=== PATIENT | female | born 1945 | race Caucasian/White ===

== ENCOUNTER 2019-08-10 08:57 | Inpatient (IN) | payer MEDICARE, MEDICAID ==
[2019-08-05 16:06] LABS: BASOPHILS % (AUTO) 0.7 % (0-1); EOSINOPHILS # (AUTO) 0.1 X10'3 (0-0.9); EOSINOPHILS % (AUTO) 2.5 % (0-6); LYMPHOCYTES # (AUTO) 1.9 X10'3 (1.1-4.8); LYMPHOCYTES % (AUTO) 39.7 % (21-51); MEAN CORPUSCULAR HEMOGLOBIN 29.2 PG (27.0-31.0); MEAN CORPUSCULAR HGB CONC 32.9 g/dL (33.0-36.5); MEAN CORPUSCULAR VOLUME 88.8 FL (78-98); MEAN PLATELET VOLUME 8.2 FL (7.4-10.4); MONOCYTES # (AUTO) 0.4 X10'3 (0-0.9); MONOCYTES % (AUTO) 8.9 % (2-12); NEUTROPHILS # (AUTO) 2.3 X10'3 (1.8-7.7); NEUTROPHILS % (AUTO) 48.2 % (42-75); PRE OP HEMATOCRIT 32.2 % (35.0-45.0); PRE OP PLATELET COUNT 256 X10'3 (140-440); RED BLOOD COUNT 3.63 X10'6 (4.20-5.60); RED CELL DISTRIBUTION WIDTH 14.5 % (11.5-14.5)
[2019-08-05 16:08] LABS: PRE OP HEMOGLOBIN 10.6 g/dL (12.0-16.0)
[2019-08-05 16:36] LABS: ALBUMIN 3.6 G/DL (3.4-5.0); ALBUMIN/GLOBULIN RATIO 1.1 (1.1-1.5); ALKALINE PHOSPHATASE 70 IU/L (46-116); BLOOD UREA NITROGEN 21 MG/DL (7-18); BUN/CREATININE RATIO 16.2 (6.6-38.0); CALCIUM 9.2 MG/DL (8.5-10.1); CHLORIDE 105 MMOL/L (99-107); PRE OP ALT 20 U/L (30-65); PRE OP ANION GAP 6 (8-16); PRE OP AST 19 U/L (10-37); PRE OP BILIRUB, TOTAL 0.2 MG/DL (0.0-1.0); PRE OP GLUCOSE 71 MG/DL (70-104); PRE OP POTASSIUM 3.8 MMOL/L (3.4-5.1); PRE OP SODIUM 143 MMOL/L (135-145); TOTAL CARBON DIOXIDE 32.4 MMOL/L (24-32); eGFR 40 ML/MIN
[2019-08-10] VITALS (16 sets, daily range): BP systolic 104–137; BP diastolic 51–82
[~2019-08-10] VITALS: Ht 162.6 cm; Wt 87.2 kg
[~2019-08-10 08:57] MED LIST: ESCI20TA38 PO; LEVO112T5 PO; MIDAZolam 5mg/5ml vial ONE; NITR0.4T48 SL; OXYB5TAB16 PO; ROSU20TA31 PO; albumin (Human) 5% 250ml 250 ML IV ONE; etomidate 2mg/ml inj. ONE; fentaNYL/PF 50MCG/1 ML 2ML syringe ONE; ondansetron/PF 4mg/2ml inj ONE; rocuronium 10mg/ml inj IV ONE
[2019-08-10] MEDS ORDERED: vancomycin inj 1,500 MG in normal saline 300ml IV soln IV ONE (10:00)
[2019-08-10] MEDS ORDERED: cefazolin/dext.iso 2gm/100ml 100 ML IV ONE (10:00)
[2019-08-10] MEDS ORDERED: famotidine 20mg tablet PO ONE (10:00)
[2019-08-10] MEDS ORDERED: ringers solution, lacted 1,000 ML IV SCH ×2 (10:00→11:32)
[2019-08-10] MEDS ORDERED: tranexamic acid inj. 860 MG in normal saline 100ml IV soln 100 ML IV ONE ×4 (10:00)
[2019-08-10] MEDS ORDERED: ROPIVAcaine 0.5% (5mg/ml) 30ml vial ONE (11:05)
[2019-08-10] MEDS ORDERED: ketorolac trometh. 30mg/ml inj. ONE (11:05)
[2019-08-10] MEDS ORDERED: ondansetron/PF 4mg/2ml inj IV PRN ×2 (11:35→15:20)
[2019-08-10] MEDS ORDERED: HYDROmorphone inj. 0.5 MG/0.5 ML DISP.SYRIN IV PRN ×2 (11:35→15:20)
[2019-08-10] MEDS ORDERED: BUPIVAcaine/PF 2.5mg/ml (0.25%) 10ml vial ONE (12:29)
[2019-08-10] MEDS ORDERED: sevoflurane 250ml liquid IH ONE (12:30)
[2019-08-10] MEDS ORDERED: fentaNYL/PF 50MCG/1 ML 2ML syringe ONE ×2 (12:31→14:44)
[2019-08-10] MEDS ORDERED: MIDAZolam 5mg/5ml vial ONE (12:32)
[2019-08-10] MEDS ORDERED: neostigmine methylsulfate 1 MG/ML 10ml vial ONE (14:15)
[2019-08-10] MEDS ORDERED: rocuronium 10mg/ml inj IV ONE (14:15)
[2019-08-10] MEDS ORDERED: propofol inj 20 ML IV ONE (14:15)
[2019-08-10] MEDS ORDERED: dexamethasone sod phosphate 4mg/ml inj. ONE (14:15)
[2019-08-10] MEDS ORDERED: ondansetron/PF 4mg/2ml inj ONE (14:15)
[2019-08-10] MEDS ORDERED: phenylephrine 10mg/ml inj. ONE (14:15)
[2019-08-10] MEDS ORDERED: glycopyrrolate 0.2mg/ml inj ONE (14:15)
[2019-08-10] MEDS ORDERED: ePHEDrine 50MG/ML INJ. ONE (14:15)
[2019-08-10] MEDS ORDERED: LIDOcaine 1%/PF 5ML 10 MG/ML VIAL ONE (14:15)
--- NOTE | 2019-08-10 14:55 | NUR ---
Received from OR via BED , accompanied by Anesthesiologist and report given by Anesthesiolgist. PATIENT WAKING UP, DENIES PAIN, V/S WNL, NEUROVASCULAR CHECKS INTACT, DRESSING TO RIGHT SHOULDER CDI WITH SLING AND COLD POWDER PACK ON AND ONQUE BALL BLOCK AT 4ML/HR. SCD ON. 20G LUE PIV.
[2019-08-10] MEDS: ROPIVAcaine 0.2%/PF PUMP/bolus 550 ML INTERSCALE SCH ×3 (15:10→19:47)
[2019-08-10] MEDS ORDERED: HYDROmorphone 1 mg/ml syringe IV PRN (15:20)
[2019-08-10] MEDS ORDERED: acetaminophen 325mg tablet PO PRN (15:20)
[2019-08-10] MEDS ORDERED: diphenhydrAMINE 25mg capsule PO PRN ×2 (15:20)
[2019-08-10] MEDS ORDERED: oxyCODONE IR 5mg (immed. release) tablet PO PRN ×2 (15:20)
[2019-08-10] MEDS ORDERED: bisacodyl 10mg suppository rectal RC PRN (15:20)
[2019-08-10] MEDS ORDERED: magnesium hydroxide 30ml (MOM) UD suspension PO PRN (15:20)
--- NOTE | 2019-08-10 15:45 | NUR ---
PATIENT A&OX4, DENIES PAIN, V/S WNL, NEUROVASCULAR CHECKS INTACT, DRESSING TO RIGHT SHOULDER CDI WITH SLING AND COLD POWDER PACK ON AND ONQUE BALL BLOCK AT 4ML/HR. SCD ON. 18G LUE PIV. pATIENT TAKEN TO ORTHO ROOM AND HOOKED UP TO MONITORS IN ROOM AND PULSE OX, CALL LIGHT GIVEN TO PATIENT AND Problems reprioritized. Patient report given , questions answered & plan of care reviewed RECIEVING STITCHER FEEDER WHO HAS TAKEN OVER PATIENT CARE.
[2019-08-10] MEDS: CLINDAmcin 900mg/NS 50ml IVPB 50 ML IV SCH ×2 (17:01→23:59)
[2019-08-10] MEDS ORDERED: tranexamic acid inj. 870 MG in normal saline 100ml IV soln 100 ML IV ONE (18:00)
[2019-08-10] MEDS: ROPIVAcaine 0.2% (10 MG/5 ML) BOLUS INJECTION INTERSCALE PRN ×3 (19:00→21:34)
--- NOTE | 2019-08-10 19:01 | NUR ---
Pt with c/o pain after using the bedside commode. Pt administered bolus, and pump titrated up to 8.
[2019-08-10] MEDS: oxybutynin 5mg tablet PO SCH (20:29)
[2019-08-10] MEDS: acetaminophen 325mg tablet PO SCH (20:30)
--- NOTE | 2019-08-10 20:39 | NUR ---
pt reports pain coming and going, pt continuously removes sling of right arm and attempts to use and move right arm, pt educated about care for right arm and continues to be non compliant with sling.
[2019-08-10] MEDS ORDERED: sennosides 8.6mg tablet PO SCH (21:00)
[2019-08-10] MEDS: potassium cl 20mEq in 1/2 NS 1,000 ML IV SCH (21:34)
[2019-08-11] MEDS: potassium cl 20mEq in 1/2 NS 1,000 ML IV SCH ×2 (00:12→05:39)
[2019-08-11 01:45] VITALS: BP 116/55
[2019-08-11] MEDS: acetaminophen 325mg tablet PO SCH ×2 (01:48→08:14)
[2019-08-11 06:00] VITALS: BP 124/62
[2019-08-11 06:21] LABS: BASOPHILS % (AUTO) 0.2 % (0-1); EOSINOPHILS % (AUTO) 0 % (0-6); HEMATOCRIT 28.4 % (35.0-45.0); HEMOGLOBIN 9.6 g/dl (12.0-16.0); LYMPHOCYTES # (AUTO) 0.7 X10'3 (1.1-4.8); LYMPHOCYTES % (AUTO) 8.8 % (21-51); MEAN CORPUSCULAR VOLUME 88.1 FL (78-98); MEAN PLATELET VOLUME 8.3 FL (7.4-10.4); MONOCYTES # (AUTO) 0.5 X10'3 (0-0.9); MONOCYTES % (AUTO) 6.1 % (2-12); NEUTROPHILS # (AUTO) 6.7 X10'3 (1.8-7.7); NEUTROPHILS % (AUTO) 84.9 % (42-75); PLATELET COUNT 208 X10'3 (140-440); RED BLOOD COUNT 3.22 X10'6 (4.20-5.60); RED CELL DISTRIBUTION WIDTH 14.4 % (11.5-14.5); WHITE BLOOD COUNT 7.9 X10'3 (4.5-11.0)
--- NOTE | 2019-08-11 06:32 | NUR ---
Patient in room ORTHO 4007. I have received report from YOU TAMEZ and had the opportunity to ask questions and assume patient care.
[2019-08-11 07:00] LABS: ANION GAP 10 (8-16); CHLORIDE 103 MMOL/L (99-107); POTASSIUM 5.2 MMOL/L (3.5-5.1); SODIUM 137 MMOL/L (135-145); TOTAL CARBON DIOXIDE 23.7 MMOL/L (24-32)
[2019-08-11] MEDS ORDERED: ASPI-1 PO (07:53)
[2019-08-11] MEDS: CLINDAmcin 900mg/NS 50ml IVPB 50 ML IV SCH (07:56)
[2019-08-11] MEDS ORDERED: atorvastatin 20mg tablet PO SCH (08:00)
[2019-08-11] MEDS ORDERED: ESCITALOPRAM OXALATE 5 MG TABLET PO SCH (08:00)
[2019-08-11] MEDS ORDERED: levoTHYROXINE 112mcg tablet PO SCH (08:00)
[2019-08-11] MEDS: oxybutynin 5mg tablet PO SCH (08:10)
[2019-08-11] MEDS ORDERED: aspirin 325mg tablet PO SCH (08:30)
[2019-08-12] MEDS ORDERED: acetaminophen 325mg tablet PO PRN (15:20)
== END 2019-08-11 10:30 | disposition home health service (06) | DRG 483 ==
LOC: PAS IN 08:57 → EDSTATUS 09:30 → ORTHO 4S 15:53
PROVIDERS: ADMIT Orthopaedic Surgery; ATTEND Orthopaedic Surgery
PROC: 3E0T3BZ Introduction of Anesthetic Agent into Peripheral Nerves and Plexi, Percutaneous Approach (ICD-10-PCS; 2019-08-10)
PROC: 0RRJ00Z Replacement of Right Shoulder Joint with Reverse Ball and Socket Synthetic Substitute, Open Approach (ICD-10-PCS; principal; 2019-08-10 12:20)
DX: M19.011 Primary osteoarthritis, right shoulder (principal); D62 Acute posthemorrhagic anemia; E03.9 Hypothyroidism, unspecified; E78.5 Hyperlipidemia, unspecified; E66.9 Obesity, unspecified; M65.811 Other synovitis and tenosynovitis, right shoulder; J45.909 Unspecified asthma, uncomplicated; M75.101 Unspecified rotator cuff tear or rupture of right shoulder, not specified as traumatic; N32.81 Overactive bladder; F32.9 Major depressive disorder, single episode, unspecified; Z68.33 Body mass index [BMI] 33.0-33.9, adult; Z79.899 Other long term (current) drug therapy
CPT/HCPCS: 36415; 80051; 80053; 82948; 84443; 85025; 87081; 97110; 97161; 97530; A4565; A4618; A7000; C1776; G0378; J1100; J1885; J2250; J2370; J2405; J2704; J2710; J2795; J3010; J3370; J3480; J3490; J7120; P9045